=== PATIENT | female | born 1950 | race Caucasian/White ===

== ENCOUNTER 2017-05-31 08:29 | Outpatient (CLI) | payer MEDICARE | END 2017-05-31 08:30 | disposition home or self-care (01) | LOC: BICMAMMO 08:29 | PROVIDERS: ATTEND Family Medicine | DX: Z12.31 Encounter for screening mammogram for malignant neoplasm of breast (principal); Z80.3 Family history of malignant neoplasm of breast | CPT/HCPCS: 77063; 77067 ==

== ENCOUNTER 2017-08-04 07:07 | Day surgery (SDC) | payer MEDICARE ==
[2017-08-03 09:37] VITALS: BMI 34.5
--- NOTE | 2017-08-04 10:35 | OP ---
DATE OF PROCEDURE: 08/04/2017 PREOPERATIVE DIAGNOSES: Personal history of colon polyps, family history of colon cancer in mother. POSTOPERATIVE DIAGNOSES: Two polyps in the cecum and ascending colon, removed by snare polypectomy, the larger of the two was 1 cm in size and a Hemoclip was placed over the polypectomy site to decreas e risk of perforation. There was no bleeding. Few colonic diverticula in the rectum. RECOMMENDATIONS: 1. Await histopathology. 2. Repeat colonoscopy in 3 years. ANESTHESIA: TIVA. PROCEDURE IN DETAIL: After the patient was informed of the risks, benefits and possible complication s of endoscopy including perforation, bleeding, reactions to medication and aspiration, informed cons ent was obtained. The patient was brought to endoscopy suite where she was sedated in gradual fashio n. Rectal examination was performed. The endoscope was advanced through anal canal through the colo n to the cecum, which was identified by the ileocecal valve and appendiceal orifice. The prep was go od. There was a large flat polyp about 1 cm in size in the cecum and was removed by snare polypectom y. There was a large defect in this area and therefore Hemoclip was placed to help prevent any perfo ration. There were no signs of bleeding or perforation at the time of endoscopy. There was another small polyp 5 mm in size removed by snare polypectomy and submitted to pathology. No other polyps we re noted. There were a few diverticula in the sigmoid colon and the ascending and descending colon a s well. After the retroflexion was performed in the rectum, which was normal, the scope was removed. The patient tolerated the procedure well with no complications.
[2017-08-04] MEDS ORDERED: PROPOFOL 200 MG/20 ML VIAL ONE (12:45)
[2017-08-04] MEDS ORDERED: Lidocaine 1% PF 5 ML VIAL ONE (12:45)
== END 2017-08-04 11:09 | disposition home or self-care (01) ==
LOC: SDC 07:07
PROVIDERS: ATTEND Internal Medicine Gastroenterology
PROC: 0DBK8ZX Excision of Ascending Colon, Via Natural or Artificial Opening Endoscopic, Diagnostic (ICD-10-PCS; principal; 2017-08-04)
PROC: 0DBH8ZX Excision of Cecum, Via Natural or Artificial Opening Endoscopic, Diagnostic (ICD-10-PCS; 2017-08-04)
DX: D12.0 Benign neoplasm of cecum (principal); K59.09 Other constipation; K57.30 Diverticulosis of large intestine without perforation or abscess without bleeding; I10 Essential (primary) hypertension; G43.909 Migraine, unspecified, not intractable, without status migrainosus; E03.9 Hypothyroidism, unspecified; F41.9 Anxiety disorder, unspecified; F32.9 Major depressive disorder, single episode, unspecified; E11.9 Type 2 diabetes mellitus without complications; E78.00 Pure hypercholesterolemia, unspecified; G89.29 Other chronic pain; Z79.84 Long term (current) use of oral hypoglycemic drugs; Z79.899 Other long term (current) drug therapy; Z91.038 Other insect allergy status; Z88.5 Allergy status to narcotic agent; Z98.890 Other specified postprocedural states; Z87.19 Personal history of other diseases of the digestive system; Z87.891 Personal history of nicotine dependence; Z80.0 Family history of malignant neoplasm of digestive organs
CPT/HCPCS: 88305; J2001; J2704

== ENCOUNTER 2017-12-06 10:33 | Outpatient (CLI) | payer MEDICARE | END 2017-12-06 10:34 | disposition home or self-care (01) | LOC: BICMAMMO 10:33 | PROVIDERS: ATTEND Family Medicine | DX: Z13.820 Encounter for screening for osteoporosis (principal); Z78.0 Asymptomatic menopausal state | CPT/HCPCS: 77080 ==

== ENCOUNTER 2019-02-06 19:25 | Inpatient (IN) | payer MEDICARE ==
[2019-02-06] MEDS ORDERED: Dexamethasone 10 MG/ML VIAL ONE (19:38)
[2019-02-06] MEDS ORDERED: Albuterol Sulfate 2.5 mg/3 ml Neb ONE (20:19)
--- NOTE | 2019-02-06 22:20 | PDOC.FPRHP ---
- History of Present Illness Chief Complaint: cough History of Present Illness: 68yo CF with h/o DMII, hypothyroidism presents for worsening cough. States cough started 4 weeks ago. Say PA at PCP 2 wks ago and was given steroids and cough medicine. Did not improve. Returned to PCP and given Z-pack. CXR at that time was clear for PNA per pt. States cough continued to worsen over past few days. States cough is non-productive, but associated with chest congestion. Denies any fever, urinary sxs, abdominal pain, CP, or SOB. States has been around sick contacts of both her sister and granddaughters. Endorses frontal sinus VARGAS and sinus drainage. Decreased appetite but good oral hydration per pt. Endorses rib soreness from coughing. ED Course: Given decadron 10mg, duonebs, and Levaquin. - Allergies/Adverse Reactions Allergies Allergy/AdvReac Type Severity Reaction Status Date / Time bee venom protein (honey bee) Allergy Verified 02/06/19 23:42 butorphanol [From Stadol] Allergy Verified 02/06/19 23:42 - Home Medications Medication Instructions Recorded Confirmed Type Citalopram [CeleXA] 40 mg PO QAM 08/03/17 02/06/19 History Cyclobenzaprine HCl 10 mg PO TID 08/03/17 02/06/19 History Levothyroxine Sodium [Synthroid] 75 mcg PO QAM 08/03/17 02/06/19 History Omeprazole 20 mg PO QAM 08/03/17 02/06/19 History metFORMIN [Glucophage] 500 mg PO BID 08/03/17 02/06/19 History traMADol HCl [Tramadol HCl] 50 mg PO Q8H PRN 08/03/17 02/06/19 History Atorvastatin Calcium [Lipitor] 40 mg PO HS 02/06/19 02/07/19 History Comments: Medication list reviewed with pt and accurate - History PMHx: DMII, HLD, Hypothyroidism, chronic back pain, anxiety/depression PSHx: Partial Hysterectomy, 2 back surgeries to remove lower disc and then scar revision. 2 spinal cord stimulators placed. Tonsilectomy FHx: Breast cancer, colon cancer, Father- COPD and DMII, Mother- colon cancer 70 , Sister, Niece- Breast cancer, Sister 57, Neice 39 Social: smoked from age [age] less than ppd, smoke free since. Denies any alcohol use or illicit drug use. Lives with , brother, and sister. Disabled from building tractor trailers. Pt is full code - Review of Systems General: reports: weight/appetite/sleep changes, fatigue. denies: fever/chills , night sweats Eyes: denies: eye pain, vision changes ENT: denies: nasal congestion, rhinorrhea Respiratory: reports: cough, shortness of breath. denies: congestion, exercise intolerance Cardiovascular: reports: edema, orthopnea (Pt using 3 pillows to prop up. New. Previoiusly 1 pillow.). denies: chest pain, palpitation, paroxysmal nocturnal dyspnea Gastrointestinal: denies: nausea, vomiting, diarrhea, constipation, abdominal pain, GI bleeding Genitourinary: denies: incontinence, dysuria Skin: denies: rashes, lesions Musculoskeletal: denies: pain, tenderness, stiffness, swelling, arthritis/ arthralgias Neurological: denies: numbness, syncope, seizure, weakness Psychological: reports: anxiety, depression (Takes citalopram) - Vital signs BP: [124/74] HR: [108] RR: [18] Tmax: [98.8] Pox: [97]% on [RA] Wt: [82kg] - Physical Exam Constitutional: NAD, awake, alert and oriented, well developed HEENT: EOMI, conjunctiva clear, no scleral icterus, grossly normal vision, grossly normal hearing, normal nasal mucosa, MMM, oropharynx clear Neck: supple, trachea midline Heart: RRR, normal S1/S2, no murmurs/rubs/gallops, pulses present, no edema Lungs: other (Course rhonchi throughout, BL wheezing throughout. Good aeration with no focal consolidation.) Abdomen: soft, non-tender, bowel sounds present Neurological: no focal deficit Skin: no rash/lesions Psychiatric: normal mood and affect, good judgment and insight, intact recent and remote memory FMR H&P: Results - Labs Result Diagrams: 02/07/19 02:29 02/07/19 02:29 - Radiology Interpretation Chest x-ray Status: image reviewed by me (No acute CPP. Sharp angles, no focal consolidation ), report reviewed by me CT scan - chest Status: report reviewed by me (Negative for PE) FMR H&P: A/P - Problem List (1) Bronchitis Current Visit: Yes Status: Acute Code(s): J40 - BRONCHITIS, NOT SPECIFIED ACUTE OR CHRONIC (2) DMII (diabetes mellitus, type 2) Current Visit: Yes Status: Chronic (3) Hypothyroidism Current Visit: Yes Status: Chronic Code(s): E03.9 - HYPOTHYROIDISM, UNSPECIFIED (4) HLD (hyperlipidemia) Current Visit: Yes Status: Chronic Code(s): E78.5 - HYPERLIPIDEMIA, UNSPECIFIED (5) Chronic back pain Current Visit: Yes Status: Chronic Code(s): M54.9 - DORSALGIA, UNSPECIFIED; G89.29 - OTHER CHRONIC PAIN - Plan 68yo CF with h/o DMII, Hypothyroidism, chronic back pain presents for failed outpatient therapy for bronchitis. #Bronchitis, failed outpatient therapy vs atypical PNA - Sxs for past 4 weeks, failed OP abx, steriods. Sxs persist and worsening - Exam positive for diffuse rhonchi and wheezes - Satting 98% on RA, will cont to monitor closely - s/p Levaquin in ED, will cont 750mg daily x5 days to cover for atypical PNA - Given decadron in ED, will cont to daily steroids - Given Mag in ED - IVF @120cc/hr - q4h duonebs with q2h prn - Tessalon pearls and mucinex for cough/congestion - WBC 12, will monitor. Flu negative. - cont to monitor respiratory status #Elevated D-dimer - CTA negative #New orthopnea - 3pillow orthopnea since onset of sxs - BNP negative at 35.3 - No LE edema or crackles on exam, satting well on RA - low suspicion for new-onset CHF, likely 2/2 bronchitis, will cont to monitor #DMII, well-controlled - A1C 6.7 in 12/2018 - Cont home metformin - ADA diet #Hypothyroidism - cont home levothyroxine #Anxiety/Depression - Cont home celexa #HLD - cont home lipitor #Chronic back pain - cont home flexeril and tramadol prn #GERD - cont home prilosec Code: Full Diet: CC IVF: LR @ 120cc/hr VTE: Lovenox PCP: Dia Disposition/LOS: Admit to medical for failed outpatient treatment of bronchitis vs atypical PNA. Cont IVF, nebs, steroids, and abx. Monitor respiratory status. Anticipate hospitalization >48hours. FMR H&P: Upper Level - Pertinent history I was present with the advisory intern during the HPI interview. I scribed the above HPI. I made edits as needed. See above. - Pertinent findings Pt has dry cough present in room. Pt has diffuse rales and wheezing in both lungs bilaterally. O2 sats stable on RA. Pt not in acute distress - Plan Date/Time: 02/06/19 1762 I, Nabeel Pacheco, PGY-3, have evaluated this patient and agree with findings/ plan as outlined by advisory intern resident. Pertinent changes/additions are listed here. I reviewed and edited the plan above. I was present with the advisory intern during the HPI. I agree with findings. See detailed plan above. Will admit for bronchitis with multiple failed outpatient regimens. Will continued duonebs janel , steroids and levaquin abx. Will continue to monitor vital signs. If does not improve possibly consider pulm consult. Addendum - Attending - Attending Attestation Date/Time: 02/07/19 0802 I personally evaluated the patient and discussed the management with Dr. Blankenship. I agree with the History, Examination, Assessment and Plan documented above with any addition or exceptions noted below.
[2019-02-06] MEDS ORDERED: Magnesium 2 GM/50 ML 2 GM in Premix Bag 1 BAG IVPB SCH (22:30)
[2019-02-06] MEDS ORDERED: Ondansetron ODT 4 MG TAB SL PRN (23:18)
[2019-02-06] MEDS ORDERED: Ondansetron PF 4 MG/2 ML Vial IVP PRN (23:18)
[2019-02-06] MEDS ORDERED: Sodium Chloride 0.9% 1,000 ML IV SCH (23:18)
[2019-02-06] MEDS ORDERED: Acetaminophen 325 MG TAB PO PRN (23:18)
[2019-02-06] MEDS ORDERED: Calcium Carbonate 500 MG ChewTAB PO PRN (23:18)
[2019-02-06] MEDS ORDERED: Enoxaparin Sodium 40 MG/0.4 ML SYRINGE SC SCH (23:30)
[2019-02-06 23:47] VITALS: BMI 30.2
[2019-02-07] MEDS: Lactated Ringer's 1,000 ML IV SCH ×4 (00:08→23:16)
[2019-02-07 02:39] LABS: #Lymphocytes 1.2 thou/uL (1.20-3.40); #Monocytes 0.1 thou/uL (0.11-0.59); #Neutrophils 11.4 thou/uL (1.40-6.50); %Basophils 0.1 % (0.0-1.0); %Eosinophils 0.3 % (0.0-10.0); %Lymphocytes 9.3 % (21.0-51.0); %Monocytes 1.1 % (0.0-10.0); %Neutrophils 89.2 % (42.0-75.0); Hemoglobin 12.6 g/dL (12.0-16.0); Mean Corpuscular HGB CONC 33.8 g/dL (32.0-36.0); Mean Corpuscular Hemoglobin 30.6 pg (27.0-31.0); Mean Corpuscular Volume 90.5 fL (78.0-98.0); Mean Platelet Volume 7.3 fL (7.4-10.4); Platelet Count 376 thou/uL (130-400); RBC Distribution Width 11.9 % (11.5-14.5); Red Blood Cell (RBC) Count 4.11 mill/uL (4.20-5.40); White Blood Cell (WBC) Count 12.8 thou/uL (4.8-10.8)
[2019-02-07 03:08] LABS: Anion Gap 23 mmol/L (10-20); BUN (Urea Nitrogen) 8 mg/dL (9.8-20.1); Calc. Creatinine Clearance 66 mL/min (70-130); Calcium 8.9 mg/dL (7.8-10.44); Carbon Dioxide 13 mmol/L (23-31); Chloride 105 mmol/L (98-107); Estimated GFR-MDRD 50; Glucose 223 mg/dL (80-115); Potassium 3.7 mmol/L (3.5-5.1); Sodium 137 mmol/L (136-145)
[2019-02-07] MEDS: Levothyroxine Sodium 75 MCG TAB PO SCH (05:45)
--- NOTE | 2019-02-07 07:03 | PDOC.FM ---
- Subjective Subjective: Pt reports she is already feeling better. She state her breathing is improved. She is still unable to cough up the sputum. - Objective MAR Reviewed: Yes Vital Signs & Weight: Vital Signs (12 hours) Temp Pulse Resp BP Pulse Ox 02/07/19 06:35 66 16 97 02/07/19 04:00 97.8 F 85 18 105/61 94 L 02/07/19 01:34 93 16 95 02/06/19 23:40 102 H 18 97 02/06/19 23:20 98.4 F 106 H 20 119/77 97 02/06/19 23:05 97 Weight Weight 82.554 kg I&O: 02/06/19 02/07/19 02/08/19 06:59 06:59 06:59 Intake Total 1760 Balance 1760 Result Diagrams: 02/07/19 02:29 02/07/19 02:29 Phys Exam - Physical Examination Constitutional: NAD HEENT: moist MMs Neck: no JVD Respiratory: wheezing present Good air movement Cardiovascular: no significant murmur Regular rhythm with extra beats, likely pvcs Gastrointestinal: soft, non-tender, no distention, positive bowel sounds Musculoskeletal: no edema, pulses present Neurological: moves all 4 limbs Psychiatric: A&O x 3 Skin: normal turgor, cap refill <2 seconds Dx/Plan (1) Bronchitis Code(s): J40 - BRONCHITIS, NOT SPECIFIED ACUTE OR CHRONIC Status: Acute (2) DMII (diabetes mellitus, type 2) Status: Chronic (3) HLD (hyperlipidemia) Code(s): E78.5 - HYPERLIPIDEMIA, UNSPECIFIED Status: Chronic (4) Hypothyroidism Code(s): E03.9 - HYPOTHYROIDISM, UNSPECIFIED Status: Chronic - Plan Plan: This is a 68 yo female with a pmh of DM2, hypothyroidism, chronic back pain Bronchitis, failed outpt therapy (Azithromycin) vs atypical PNA -Likely bronchitis, viral vs bacterial. Procal negative -Start rocephin and doxycycline -Continue steroids and duoneb support -Continue tessalon pears and mucinex -Flu negative -Possibly discharge this afternoon, tomorrow for sure Elevated D-dimer -CTA negative New orthopnea -3pillow, BMP negative -Likely related to bronchitis DM2, well controlled -Continue home meds Hypothyroidism -Normal TSH, continue home medications Anxiety/depression -Continue home celexa HLD -Continue lipitor Chronic back -Continue home flexeril and tramadol PRN GERD -continue home meds
[2019-02-07] MEDS: cefTRIAXone\\ROCEPHIN 1 GM in Sodium Chloride 0.9% 100 ML IVPB SCH (08:24)
[2019-02-07] MEDS: Citalopram 20 MG TAB PO SCH (08:25)
[2019-02-07] MEDS: Enoxaparin Sodium 40 MG/0.4 ML SYRINGE SC SCH (08:25)
[2019-02-07] MEDS: guaiFENesin/DM ER PO SCH ×2 (08:26→20:11)
[2019-02-07] MEDS: methylPREDNISolone Sod Succ 40 MG VIAL IVP SCH (08:26)
[2019-02-07] MEDS: metFORMIN 500 MG TAB PO SCH ×2 (08:26→20:11)
[2019-02-07] MEDS: Benzonatate 100 MG CAP PO SCH ×3 (08:26→20:11)
[2019-02-07] MEDS: Doxycycline 100 MG CAP PO SCH ×2 (08:42→20:11)
[2019-02-07] MEDS ORDERED: Atorvastatin Calcium 40 MG TAB PO SCH ×2 (09:00→21:00)
--- NOTE | 2019-02-07 10:50 | PRG ---
DATE OF SERVICE: 02/07/2019 Ms. Akbar is a very pleasant 68-year-old lady, who was admitted with an acute bronchitis that has lasted now for almost 4 weeks. She is afebrile, feels much better this morning. She quit smoking over 40 years ago, and has no history of asthma. Her , however, smokes and I am sure this is likely aggravating her lung condition. In the event, she is better, will likely be discharged on a prednisone burst for 5 days as well as an Atrovent inhaler. Job ID: [id number]
[2019-02-07] MEDS: traMADol HCl 50 MG TAB PO PRN ×2 (14:49→23:16)
[2019-02-07] MEDS: Cyclobenzaprine 10 MG TAB PO PRN ×2 (14:49→23:17)
[2019-02-07] MEDS ORDERED: Calcium Carbonate 500 MG ChewTAB PO SCH (20:45)
[2019-02-07] MEDS ORDERED: FLU VACC TS2019-20(65YR UP)/PF 180 MCG/0.5 ML SYRINGE IM ONE (21:00)
[2019-02-08 05:34] LABS: #Basophils 0.1 thou/uL (0.0-0.2); #Lymphocytes 3.2 thou/uL (1.20-3.40); #Monocytes 1.2 thou/uL (0.11-0.59); #Neutrophils 14.6 thou/uL (1.40-6.50); %Basophils 0.5 % (0.0-1.0); %Eosinophils 0.2 % (0.0-10.0); %Lymphocytes 16.8 % (21.0-51.0); %Neutrophils 76.5 % (42.0-75.0); Hemoglobin 11.8 g/dL (12.0-16.0); Mean Corpuscular HGB CONC 32.6 g/dL (32.0-36.0); Mean Corpuscular Hemoglobin 29.6 pg (27.0-31.0); Mean Corpuscular Volume 90.9 fL (78.0-98.0); Mean Platelet Volume 7.6 fL (7.4-10.4); Platelet Count 361 thou/uL (130-400); RBC Distribution Width 12.3 % (11.5-14.5); Red Blood Cell (RBC) Count 3.98 mill/uL (4.20-5.40); White Blood Cell (WBC) Count 19.1 thou/uL (4.8-10.8)
[2019-02-08] MEDS: Levothyroxine Sodium 75 MCG TAB PO SCH (05:56)
[2019-02-08 05:58] LABS: Anion Gap 13 mmol/L (10-20); BUN (Urea Nitrogen) 13 mg/dL (9.8-20.1); Calc. Creatinine Clearance 75 mL/min (70-130); Calcium 8.7 mg/dL (7.8-10.44); Carbon Dioxide 26 mmol/L (23-31); Chloride 107 mmol/L (98-107); Estimated GFR-MDRD 58; Glucose 139 mg/dL (80-115); Potassium 3.6 mmol/L (3.5-5.1); Sodium 142 mmol/L (136-145)
[2019-02-08] MEDS: Lactated Ringer's 1,000 ML IV SCH (05:58)
--- NOTE | 2019-02-08 06:44 | PDOC.FM ---
- Subjective Subjective: Pt reports vomiting overnight. She accounts this to her diet, fried turkey and fish. She states her breathing is improved today. She is still coughing but it is getting better. Denies fever or chills. - Objective MAR Reviewed: Yes Vital Signs & Weight: Vital Signs (12 hours) Temp Pulse Resp BP Pulse Ox 02/08/19 02:08 92 12 02/08/19 00:00 98.7 F 02/07/19 23:14 96 12 02/07/19 20:00 99.8 F H 83 18 103/65 96 Weight Weight 82.554 kg I&O: 02/06/19 02/07/19 02/08/19 06:59 06:59 06:59 Intake Total 1760 1440 Balance 1760 1440 Result Diagrams: 02/08/19 05:06 02/08/19 05:06 Phys Exam - Physical Examination Constitutional: NAD HEENT: moist MMs Neck: no JVD Respiratory: wheezing present Cardiovascular: no significant murmur regular rate, extra beats Gastrointestinal: soft, non-tender, no distention, positive bowel sounds Musculoskeletal: no edema, pulses present Neurological: moves all 4 limbs Psychiatric: A&O x 3 Skin: cap refill <2 seconds Dx/Plan (1) Bronchitis Code(s): J40 - BRONCHITIS, NOT SPECIFIED ACUTE OR CHRONIC Status: Acute (2) DMII (diabetes mellitus, type 2) Status: Chronic (3) HLD (hyperlipidemia) Code(s): E78.5 - HYPERLIPIDEMIA, UNSPECIFIED Status: Chronic (4) Hypothyroidism Code(s): E03.9 - HYPOTHYROIDISM, UNSPECIFIED Status: Chronic - Plan Plan: This is a 68 yo female with a pmh of DM2, hypothyroidism, chronic back pain Bronchitis, failed outpt therapy (Azithromycin) vs atypical PNA -Likely bronchitis, viral vs bacterial. Procal negative -Start rocephin and doxycycline -Continue steroids and duoneb support -Continue tessalon pears and mucinex -Flu negative -Discharge today -Out pt PFTs and pulm consult Elevated D-dimer -CTA negative New orthopnea -3pillow, BMP negative -Likely related to bronchitis DM2, well controlled -Continue home meds Hypothyroidism -Normal TSH, continue home medications Anxiety/depression -Continue home celexa HLD -Continue lipitor Chronic back -Continue home flexeril and tramadol PRN GERD -continue home meds
[2019-02-08 08:07] VITALS: BP 119/78; TEMP 97.9
[2019-02-08] MEDS: cefTRIAXone\\ROCEPHIN 1 GM in Sodium Chloride 0.9% 100 ML IVPB SCH (08:25)
[2019-02-08] MEDS: Benzonatate 100 MG CAP PO SCH (08:25)
[2019-02-08] MEDS: metFORMIN 500 MG TAB PO SCH (08:25)
[2019-02-08] MEDS: Citalopram 20 MG TAB PO SCH (08:26)
[2019-02-08] MEDS: guaiFENesin/DM ER PO SCH (08:26)
[2019-02-08] MEDS: Doxycycline 100 MG CAP PO SCH (08:27)
[2019-02-08] MEDS: methylPREDNISolone Sod Succ 40 MG VIAL IVP SCH (08:27)
[2019-02-08] MEDS: Enoxaparin Sodium 40 MG/0.4 ML SYRINGE SC SCH (08:37)
--- NOTE | 2019-02-08 11:41 | PRG ---
DATE OF SERVICE: 02/08/2019 Ms. Akbar continues to look and feel much improved. In reviewing her records from the outlying ER, it was obvious she had a great deal of wheezing on her initial presentation. I am certain she has an element of asthma, and I would suggest that we add an inhaled corticosteroid to her regimen of albuterol and Atrovent. She should also undergo formal PFTs as an outpatient. In the event, she is back to baseline and will be discharged. Job ID: [id number]
--- NOTE | 2019-02-08 23:58 | DIS ---
DATE OF ADMISSION: 02/06/2019 DATE OF DISCHARGE: 02/08/2019 ADMITTING ATTENDING: José Miguel Omalley MD DISCHARGE ATTENDING: Alejandro Chavez MD RESIDENT: Ben Elizabeth DO PROCEDURES PERFORMED: Outside ER chest x-ray shows no acute cardiopulmonary process. CTA of chest shows no evidence of acute pulmonary thromboembolism. CONSULTS: None. PRIMARY DIAGNOSES: Bronchitis with failed outpatient therapy versus atypical pneumonia, bronchospasm likely secondary to seasonal allergies versus gastroesophageal reflux disease. SECONDARY DIAGNOSES: Type 2 diabetes, hypothyroidism, anxiety/depression, hyperlipidemia, chronic back pain, gastroesophageal reflux disease. DISCHARGE MEDICATIONS: 1. Tessalon Perles 100 mg p.o. t.i.d. 2. Doxycycline 100 mg p.o. b.i.d. for 3 days. 3. Prednisone 40 mg p.o. q.a.m. for 3 days. 4. Ipratropium two puffs q.i.d. 5. Guaifenesin 600 mg p.o. q.12 hours. 6. Atorvastatin 40 mg p.o. at bedtime. 7. Citalopram 40 mg p.o. q.a.m. 8. Cyclobenzaprine 10 mg p.o. t.i.d. 9. Levothyroxine 75 mcg p.o. a.m. 10. Metformin 500 mg p.o. b.i.d. 11. Tramadol 50 mg p.o. q.8 hours. BRIEF HISTORY OF PRESENT ILLNESS/HOSPITAL COURSE: This is a 68-year-old female with past medical history as above, who presents to the hospital with worsening cough and shortness of breath going on for the last four weeks. She has been treated with steroids and azithromycin with no resolution of the cough. The patient reports increased shortness of breath as well. The patient admitted to the hospital and treated with IV steroids, DuoNeb, doxycycline as well as Rocephin. The patient was improving through her time. Plan is to discharge patient yesterday, however, patient was not feeling comfortable going home. Overnight, patient had one episode of emesis after eating fatty foods. Prior to discharge, the patient was educated on the use of inhalers as well as changing her GERD medication from Prilosec to Pepcid due to concern for long-term health issues. DISPOSITION: Stable. DISCHARGE INSTRUCTIONS: 1. Location: Home. 2. Diet: Diabetic. 3. Activity: As tolerated. 4. Followup: Follow up with Dr. Alvares. I discussed the case with Dr. Dia Villatoro for outpatient pulmonary function tests. Job ID: [id number]
== END 2019-02-08 13:34 | disposition home or self-care (01) | DRG 202 ==
LOC: ERS 19:25 → T4-A 22:58
PROVIDERS: ADMIT Family Medicine; ATTEND Family Medicine
DX: J20.9 Acute bronchitis, unspecified (principal); J18.9 Pneumonia, unspecified organism; J45.901 Unspecified asthma with (acute) exacerbation; K21.9 Gastro-esophageal reflux disease without esophagitis; E11.9 Type 2 diabetes mellitus without complications; E03.9 Hypothyroidism, unspecified; G89.29 Other chronic pain; M54.9 Dorsalgia, unspecified; E78.5 Hyperlipidemia, unspecified; F32.9 Major depressive disorder, single episode, unspecified; F41.9 Anxiety disorder, unspecified; Z88.8 Allergy status to other drugs, medicaments and biological substances; Z91.018 Allergy to other foods; Z79.899 Other long term (current) drug therapy; Z79.890 Hormone replacement therapy; Z79.84 Long term (current) use of oral hypoglycemic drugs
CPT/HCPCS: 36415; 80048; 82010; 84145; 84443; 85025; 87040; 94640; 96365; 96375; J0696; J1100; J1650; J1956; J2920; J3475; J3490; J7611; J7620

== ENCOUNTER 2019-03-13 09:10 | Outpatient (CLI) | payer MEDICARE ==
--- NOTE | 2019-03-13 11:07 | RAD ---
PA AND LATERAL CHEST: HISTORY: Dyspnea. COMPARISON: 02/06/2019 FINDINGS: The heart size is normal. The lungs are expanded without focal areas of consolidation, pneumothoraces or pleural effusions. There are degenerative changes in the spine. Dorsal stimulator leads are prese nt in the spine. IMPRESSION: No acute process. POS: CAITIE
== END 2019-03-13 09:11 | disposition home or self-care (01) ==
LOC: RAD 09:10
PROVIDERS: ATTEND Internal Medicine Critical Care Medicine
DX: R06.00 Dyspnea, unspecified (principal)
CPT/HCPCS: 71046

== ENCOUNTER → 2019-10-04 | Outpatient (CLI) | payer MEDICARE ==
--- NOTE | 2019-10-04 13:40 | MMO ---
Bilateral MAMMO Bilat Screen [facility]. CLINICAL HISTORY: Patient is 69 years old and is seen for screening. The patient has the following family history of breast cancer: sister and niece, at age 36. The patient has no personal history of cancer. VIEWS: The views performed were: bilateral craniocaudal with tomosynthesis and bilateral mediolateral oblique with tomosynthesis. FILMS COMPARED: The present examination has been compared to prior imaging studies performed at [facility] on 05/31/2017, and at [facility] on 06/29/2013, 08/28/2013 and 08/02/2014. This study has been interpreted with the assistance of computer-aided detection. MAMMOGRAM FINDINGS: There are scattered fibroglandular densities. There are intramammary lymph nodes with associated benign appearing and vascular calcifications seen in both breasts. There are no suspicious masses, suspicious calcifications, or new areas of architectural distortion. IMPRESSION: THERE IS NO MAMMOGRAPHIC EVIDENCE OF MALIGNANCY. A ROUTINE FOLLOW-UP MAMMOGRAM IN 1 YEAR IS RECOMMENDED. THE RESULTS OF THIS EXAM WERE SENT TO THE PATIENT. ACR BI-RADS Category 2 - Benign finding MAMMOGRAPHY NOTE: 1. A negative mammogram report should not delay a biopsy if a dominant of clinically suspicious mass is present. 2. Approximately 10% to 15% of breast cancers are not detected by mammography. 3. Adenosis and dense breasts may obscure an underlying neoplasm. Reported by: MARIELY CHESTER MD Electonically Signed: [id number]
== END ==
LOC: BICMAMMO 12:22
PROVIDERS: ATTEND Family Medicine
DX: Z12.31 Encounter for screening mammogram for malignant neoplasm of breast (principal); Z80.3 Family history of malignant neoplasm of breast
CPT/HCPCS: 77063; 77067